=== PATIENT | male | born 1955 | race Caucasian/White ===

== ENCOUNTER 2021-01-17 10:26 | Outpatient (CLI) | payer BC, SELFPAY | END 2021-01-17 10:27 | disposition home or self-care (01) | LOC: ANHCOVIDVC 10:26 | PROVIDERS: PCP Family Medicine | DX: Z23 Encounter for immunization (principal) | CPT/HCPCS: 0001A; 91300 ==

== ENCOUNTER 2021-02-07 10:22 | Outpatient (CLI) | payer BC, SELFPAY | END 2021-02-07 10:23 | disposition home or self-care (01) | LOC: ANHCOVIDVC 10:22 | PROVIDERS: PCP Family Medicine | DX: Z23 Encounter for immunization (principal) | CPT/HCPCS: 0002A; 91300 ==

== ENCOUNTER 2022-08-06 09:06 | Outpatient (CLI) | payer MEDICARE, SELFPAY ==
[2022-08-06 10:22] LABS: Kit Draw Collected
== END 2022-08-06 09:07 | disposition home or self-care (01) ==
LOC: ANHGOSHLAB 09:13
PROVIDERS: PCP Family Medicine; Visit Provider Nurse Practitioner
DX: E78.5 Hyperlipidemia, unspecified (principal); I10 Essential (primary) hypertension
CPT/HCPCS: 36415